=== PATIENT | male | born 1970 | race Caucasian/White ===

== ENCOUNTER 2018-10-29 19:56 | Emergency (ER) | payer OTHER ==
[2018-10-29] MEDS ORDERED: NS 1,000 ML IV ONE (20:08)
--- NOTE | 2018-10-29 20:15 | EDPHY ---
H & P Stated Complaint: CHEST PAIN , TIGHT , SOB, HEAVINESS IN MID CHEST Time Seen by Provider: 10/29/18 20:02 HPI/ROS: CHIEF COMPLAINT: Chest heaviness HISTORY OF PRESENT ILLNESS: Patient is a 48-year-old man who states that he has been dealing with chronic Lyme disease for last 3 years and is on herbal remedies who comes to the emergency department complaining of chest heaviness and shortness of breath for the lasts 8 or so hours. He states that he has been dealing with body aches, intermittent sweating and chest heaviness for the last few weeks but seems to worsened today around noon. No nausea vomiting or GI symptoms. No leg pain or swelling. No recent travel. He does not take any medications other than herbal. No recent trauma or procedures. Severity: Mild Modifying factors: None REVIEW OF SYSTEMS: Constitutional: denies: chills, fever, recent illness, recent injury EENTM: denies: blurred vision, double vision, nose congestion Respiratory: denies: cough, shortness of breath Cardiac: See HPI denies: irregular heart rate, lightheadedness, palpitations Gastrointestinal/Abdominal: denies: abdominal pain, diarrhea, nausea, vomiting, blood streaked stools Genitourinary: denies: dysuria, frequency, hematuria, pain Musculoskeletal: See HPI Skin: denies: lesions, rash, jaundice, bruising Neurological: denies: headache, numbness, paresthesia, tingling, dizziness, weakness Hematologic/Lymphatic: denies: blood clots, easy bleeding, easy bruising Immunologic/allergic: denies: HIV/AIDS, transplant 10 systems reviewed and negative except as noted EXAM: GENERAL: Well-appearing, well-nourished and in no acute distress. HEAD: Atraumatic, normocephalic. EYES: Pupils equal round and reactive to light, extraocular movements intact, sclera anicteric, conjunctiva are normal. ENT: TMs normal, nares patent, oropharynx clear without exudates. Moist mucous membranes. NECK: Normal range of motion, supple without lymphadenopathy or JVD. LUNGS: Breath sounds clear to auscultation bilaterally and equal. No wheezes rales or rhonchi. HEART: Regular rate and rhythm without murmurs, rubs or gallops. ABDOMEN: Soft, nontender, normoactive bowel sounds. No guarding, no rebound. No masses appreciated. BACK: No CVA tenderness, no spinal tenderness, step-offs or deformities EXTREMITIES: Normal range of motion, no pitting or edema. No clubbing or cyanosis. NEUROLOGICAL: Cranial nerves II through XII grossly intact. Normal speech, normal gait. 5/5 strength, normal movement in all extremities, normal sensation , normal reflexes. No splinter hemorrhages. Or Young spots PSYCH: Normal mood, normal affect. SKIN: Warm, dry, normal turgor, no visible rashes or lesions. Source: Patient Exam Limitations: No limitations - Personal History Current Tetanus/Diphtheria Vaccine: Unsure Current Tetanus Diphtheria and Acellular Pertussis (TDAP): Unsure - Medical/Surgical History Hx Asthma: No Hx Chronic Respiratory Disease: No Hx Diabetes: No Hx Cardiac Disease: No Hx Renal Disease: No Hx Cirrhosis: No Hx Alcoholism: No Hx HIV/AIDS: No Hx Splenectomy or Spleen Trauma: No Other PMH: MEDICAL aDRENAL INSUFFINCIENCY. SURGERY SINUS , APPENDECTOMY - Family History Significant Family History: No pertinent family hx - Social History Smoking Status: Current some day smoker Alcohol Use: None Constitutional: Initial Vital Signs Temperature (C) 36.7 C 10/29/18 19:57 Heart Rate 81 10/29/18 19:57 Respiratory Rate 18 10/29/18 19:57 Blood Pressure 137/75 H 10/29/18 19:57 O2 Sat (%) 99 10/29/18 19:57 O2 Delivery Mode Room Air Allergies/Adverse Reactions: No Known Allergies Allergy (Unverified 10/29/18 20:00) Home Medications: Medication Instructions Recorded AZITHROMYCIN [Z-PACK] 250 mg PO DAILY #6 packet 11/18/13 Hydrocortisone 11/18/13 Medical Decision Making - Diagnostics EKG Interpretation: An EKG obtained and was read and documented in trace view. Please see trace view for full reading and report. Sinus rhythm, no acute ischemic changes or arrhythmia Imaging: Discussed imaging studies w/ [facility] Radiologist ED Course/Re-evaluation: 9:00 p.m. the patient is feeling much better. He feels reassured. His single troponin is reassuring considering the duration of his symptoms. His lab work imaging and EKG are all normal. Fluids pending but he does not wish to wait. We engaged in shared decision making. He is eager to go home. I will have him follow up with Cardiology. I encouraged NSAIDs in case his symptoms represent pleurisy or other mild inflammatory condition. We discussed indications for returning. The patient is well-appearing and stable vital signs. Differential Diagnosis: Partial list of the Differential diagnosis considered include but were not limited to; pleurisy, bronchitis, muscle strain, anxiety and although unlikely based on the history and physical exam, I also considered acute coronary disease , PE, dissection. I discussed these differential diagnoses and the plan with the patient as well as the usual and expected course. The patient understands that the diagnosis is provisional and that in medicine we are not always correct and that further workup is often warranted. Usual and customary warnings were given. All of the patient's questions were answered. The patient was instructed to return to the emergency department should the symptoms at all worsen or return, otherwise to followup with the physician as we discussed. - Data Points Laboratory Results: Laboratory Results 10/29/18 20:15 10/29/18 20:15 Medications Given: Discontinued Medications Sodium Chloride (Ns) 1,000 mls @ 0 mls/hr IV ONCE ONE; Wide Open PRN Reason: Protocol Stop: 10/29/18 20:09 Last Admin: 10/29/18 20:19 Dose: 1,000 mls Point of Care Test Results: Chemistry 10/29/18 20:18 POC Troponin I 0.00 ng/mL ng/mL (0.00-0.08) Departure - Departure Disposition: Home, Routine, Self-Care Clinical Impression: Chest pain Qualifiers: Chest pain type: unspecified Qualified Code(s): R07.9 - Chest pain, unspecified Condition: Fair Instructions: Chest Pain (ED) Referrals: MAREK FAYE [Primary Care Provider] - 2-3 days, call for appt.
--- NOTE | 2018-10-29 20:17 | CPEKG ---
Test Reason : OPEN Blood Pressure : / mmHG Vent. Rate : 067 BPM Atrial Rate : 063 BPM P-R Int : 172 ms QRS Dur : 092 ms QT Int : 390 ms P-R-T Axes : 079 074 056 degrees QTc Int : 412 ms Sinus rhythm Confirmed by Rigo Ortez ([id number]) on 10/29/2018 8:16:20 PM Referred By: Rigo Ortez Confirmed By:Rigo Ortez
[2018-10-29 20:23] LABS: PLATELET COUNT 227 10^3/uL (150-400)
[2018-10-29 21:29] VITALS: BP 115/79
== END 2018-10-29 21:29 | disposition home or self-care (01) ==
DX: R07.9 Chest pain, unspecified (principal); E86.9 Volume depletion, unspecified
CPT/HCPCS: 84484-ER